=== PATIENT | male | born 1940 | race Caucasian/White ===

== ENCOUNTER → 2021-01-03 | Outpatient (CLI) | payer OTHER ==
[~2021-01-03] MED LIST: FISH OIL 1,001000 M2 PO; FLOMAX0.4 MG PO; HYDROCHLOROTH12.5 M1 PO; LEVOTHYROXINE 0.1 MG PO; VITAMIN B-12500 MCG PO; VITAMINC500 PO
== END ==
LOC: M.PUL 09:30
PROVIDERS: ATTEND Internal Medicine
DX: J84.112 Idiopathic pulmonary fibrosis (principal)

== ENCOUNTER → 2021-04-04 | Outpatient (CLI) | payer OTHER ==
--- NOTE | 2021-04-11 14:14 | PF ---
[address] [address] PULMONARY FUNCTION REPORT Name: XOCHILT ROCHA Room: [facility]#: [id number] Admission: 04/04/21 Attend Phys: Katie Suarez Discharge: Date of : 44 Report #: [id number] THIS REPORT FOR: cc: Tarah Simpson MD, Katrina MD Pervez, Adeel MD ~ DATE OF VISIT: 04/04/2021 There is severe reduction in FEV1/FVC ratio to 53% already with the forced vital capacity decreased to 61% and FEV1 decreased to 45%. The FEF 25-75 is decreased to 20%. After the administration of a bronchodilator, there is 45% increase in FEF 25-75. There is no increase in any of the other values noted. The patient's FEV1 is 1.36 liters. It does not increase after the administration of a bronchodilator. The DLCO as adjusted for hemoglobin is decreased to 45%, but when adjusted for alveolar ventilation, in fact is 114%. The patient was too fatigued to perform the lung volumes test. IMPRESSION: 1. Severe obstruction with some evidence of reversibility in that FEF 25-75 does increase after the administration of bronchodilator 45%. 2. The DLCO as adjusted for hemoglobin is 45% and when adjusted for alveolar ventilation, it is 114%. 3. I feel that it is more likely that the adjusted value for hemoglobin of 45% is closer to the patient's true DLCO. The patient is unable to perform lung volumes due to fatigue. <ELECTRONICALLY SIGNED> By: Orlando June MD 04/11/21 1414 11 Akadeem June MD /nt
== END ==
LOC: M.PUL 08:49
PROVIDERS: ATTEND Registered Nurse
DX: J98.8 Other specified respiratory disorders (principal); R53.83 Other fatigue